=== PATIENT | male | born 2000 | race Caucasian/White ===

== ENCOUNTER 2021-12-04 18:01 | Emergency (ER) | payer OTHER ==
[2021-12-04 18:11] VITALS: BP 111/73; PULSE 87; TEMP 97.9; BMI 19.3
== END 2021-12-04 19:50 | disposition home or self-care (01) ==
LOC: JERFT 18:01
PROC: 3E023GC Introduction of Other Therapeutic Substance into Muscle, Percutaneous Approach (ICD-10-PCS; principal; 2021-12-04)
DX: A74.9 Chlamydial infection, unspecified (principal)
CPT/HCPCS: 36415; 87491; 87591; 99284-25

== ENCOUNTER 2022-03-01 07:09 | Emergency (ER) | payer OTHER ==
[2022-03-01 07:42] VITALS: BP 105/62; PULSE 81; TEMP 98; BMI 23.3
== END 2022-03-01 08:19 | disposition left against medical advice (07) ==
LOC: JER 07:09
DX: R55 Syncope and collapse (principal)
CPT/HCPCS: 99281-25

== ENCOUNTER 2022-03-25 02:45 | Emergency (ER) | payer OTHER ==
[2022-03-25 03:29] VITALS: BP 117/73; PULSE 69; TEMP 98.9; BMI 25.0
== END 2022-03-25 04:48 | disposition home or self-care (01) ==
LOC: JER 02:45
DX: R07.89 Other chest pain (principal)
CPT/HCPCS: 71046-TC-FY; 93005; 93010; 99284-25

== ENCOUNTER 2022-07-08 06:52 | Emergency (ER) | payer OTHER ==
[2022-07-08 07:03] VITALS: BP 111/75; PULSE 69; RESP 18; BMI 26.2
[2022-07-08] MEDS ORDERED: SODIUM CHLORIDE 1,000 ML IV STA (07:58)
[2022-07-08] MEDS ORDERED: ACETAMINOPHEN 1000 MG/100 ML BAG IVPB ONE (07:58)
== END 2022-07-08 09:00 | disposition home or self-care (01) ==
LOC: JER 06:52
DX: R07.9 Chest pain, unspecified (principal); R05.1 Acute cough
CPT/HCPCS: 0241U-QW; 71046-TC-FY; 93005; 93010; 99285-25